=== PATIENT | male | born 1955 | race Caucasian/White ===

== ENCOUNTER 2018-11-22 22:09 | Emergency (ER) | payer OTHER ==
[2018-11-22] MEDS: KETOROLAC 30 MG INJ IM (22:55)
== END 2018-11-23 00:36 | disposition home or self-care (01) ==
LOC: FTE 22:09
DX: S09.90XA Unspecified injury of head, initial encounter (principal); R51 Headache; V49.49XA Driver injured in collision with other motor vehicles in traffic accident, initial encounter
CPT/HCPCS: 70450; 96372; 99285-25